=== PATIENT | female | born 1960 ===

== ENCOUNTER 2017-08-15 21:57 | Emergency (ER) | payer OTHER ==
[~2017-08-15] VITALS: Ht 167.6 cm; Wt 97.7 kg
[2017-08-15 22:31] VITALS: Ht 167.6 cm; Wt 97.7 kg
[2017-08-16] MEDS ORDERED: KETOROLAC 30 MG INJ IM STA (01:34)
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
[2017-08-16] MEDS ORDERED: DIAZ5TAB4 PO (01:42)
[2017-08-16] MEDS ORDERED: HYDR-906 PO (01:42)
[2017-08-16] MEDS ORDERED: NAPR-260 PO (01:42)
== END 2017-08-16 02:06 | disposition home or self-care (01) ==
LOC: FTE 21:57
DX: M54.5 Low back pain (principal)
CPT/HCPCS: 96372; J1885; Z7502